=== PATIENT | male | born 1970 | race Caucasian/White ===

== ENCOUNTER 2023-01-22 15:27 | Outpatient (RCR) | payer OTHER, SELFPAY | END 2023-01-22 19:00 | disposition home or self-care (01) | LOC: PT 15:27 | PROVIDERS: PCP Family Medicine; Visit Provider Family Medicine | DX: S86.211D Strain of muscle(s) and tendon(s) of anterior muscle group at lower leg level, right leg, subsequent encounter (principal) ==